=== PATIENT | male | born 1960 | race Caucasian/White ===

== ENCOUNTER 2020-07-05 16:20 | Day surgery (SDC) | payer BC ==
[~2020-07-05 16:20] MED LIST: Bupivacaine PF 0.75% SDV 10 ML ONE; CEFAZOLIN 1 GM VIAL ONE; Lidocaine 1% PF 5 ML VIAL ONE; Lidocaine 4% PF 5 ML AMP ONE; Maxitrol 0.1% Opth Oint 3.5 GM TUBE ONE; PROPOFOL 200 MG/20 ML VIAL ONE; Triamcinolone 40 MG/ML VIAL ONE
[2020-07-05] MEDS ORDERED: EPINEPHrine 0.3 MG in Ophthalmic Irrigation Solution 500 ML IRR SCH (16:30)
[2020-07-05] MEDS ORDERED: Cyclopentolate 1% Opth Drop 2 ML BOT FS SCH (16:30)
[2020-07-05] MEDS ORDERED: Phenylephrine 2.5% Ophth Soln 5 ML BOT FS SCH (16:30)
[2020-07-05] MEDS ORDERED: Midazolam HCl 2 mg/2 ml Vial ONE (16:55)
[2020-07-05] MEDS ORDERED: Fentanyl 100 MCG/2 ML VIAL ONE (16:55)
== END 2020-07-05 19:32 | disposition home or self-care (01) ==
LOC: SDC 16:20
PROVIDERS: ATTEND Ophthalmology Retina Specialist
PROC: 08T43ZZ Resection of Right Vitreous, Percutaneous Approach (ICD-10-PCS; principal; 2020-07-05)
DX: H33.011 Retinal detachment with single break, right eye (principal)
CPT/HCPCS: J0171; J0690; J2250; J2704; J3010; J3301; J3490

== ENCOUNTER 2020-09-04 12:35 | Day surgery (SDC) | payer BC ==
[2020-09-03 16:52] VITALS: BMI 30.8
[~2020-09-04 12:35] MED LIST changes: -Bupivacaine PF 0.75% SDV 10 ML ONE; -CEFAZOLIN 1 GM VIAL ONE; +EPINEPHrine 0.3 MG in Ophthalmic Irrigation Solution 500 ML IRR SCH; +Fentanyl 100 MCG/2 ML VIAL ONE; -Lidocaine 1% PF 5 ML VIAL ONE; -Lidocaine 4% PF 5 ML AMP ONE; -Maxitrol 0.1% Opth Oint 3.5 GM TUBE ONE; +Midazolam HCl 2 mg/2 ml Vial ONE; -PROPOFOL 200 MG/20 ML VIAL ONE; -Triamcinolone 40 MG/ML VIAL ONE
[2020-09-04] MEDS ORDERED: Phenylephrine 2.5% Ophth Soln 5 ML BOT ONE (12:57)
[2020-09-04] MEDS ORDERED: Cyclopentolate 1% Ophth Drops 15 ML BOT ONE (12:57)
[2020-09-04] MEDS ORDERED: Fentanyl 100 MCG/2 ML VIAL ONE (14:16)
[2020-09-04] MEDS ORDERED: Lidocaine 1% PF 5 ML VIAL ONE (14:27)
[2020-09-04] MEDS ORDERED: Lidocaine 4% PF 5 ML AMP ONE (14:27)
[2020-09-04] MEDS ORDERED: Bupivacaine PF 0.75% SDV 10 ML ONE (14:27)
[2020-09-04] MEDS ORDERED: PROPOFOL 200 MG/20 ML VIAL ONE (14:27)
[2020-09-04] MEDS ORDERED: CEFAZOLIN 1 GM VIAL ONE (14:27)
[2020-09-04] MEDS ORDERED: Maxitrol 0.1% Opth Oint 3.5 GM TUBE ONE (14:27)
[2020-09-04] MEDS ORDERED: Triamcinolone 40 MG/ML VIAL ONE (14:27)
== END 2020-09-04 16:00 | disposition home or self-care (01) ==
LOC: SDC 12:35
PROVIDERS: ATTEND Ophthalmology Retina Specialist
PROC: 08T43ZZ Resection of Right Vitreous, Percutaneous Approach (ICD-10-PCS; principal; 2020-09-04)
DX: H33.41 Traction detachment of retina, right eye (principal); H33.021 Retinal detachment with multiple breaks, right eye; Z79.899 Other long term (current) drug therapy
CPT/HCPCS: C1814; J0171; J0690; J2250; J2704; J3010; J3301; J3490